=== PATIENT | female | born 1950 | race American Indian/Alaskan Native ===

== ENCOUNTER 2021-04-29 17:28 | Observation (INO) | payer MEDICARE ==
--- NOTE | 2021-04-29 18:31 | Emergency Department Report ---
ED Dizziness HPI - General Chief Complaint: Abdominal Pain Stated Complaint: WEAKNESS Time Seen by Provider: 04/29/21 18:04 Source: EMS Mode of arrival: Stretcher Limitations: No Limitations - History of Present Illness Initial Comments: 71-year-old female past medical history of hypertension, interstitial lung disease, and peptic ulcer disease presents to the hospital with episode of nausea, vomiting, and near syncope. Patient states she felt fine all day. Prior to arrival patient felt lightheaded, almost passed out, and had 2 episodes of vomiting. Her granddaughter broke her fall and she denies head injury. Patient complains of mild shortness of breath during episode. She received Zofran 4 mg in 350 mL normal saline provided by EMS with improvement in symptoms. Patient denies headache, chest pain, abdominal pain, calf pain, leg swelling, history of PE/DVT, history of CAD or home oxygen dependence. Patient does report that she does have a history of intermittent vertigo that is typically worse with turning her head. She reports this episode felt a little different. She was seen by her [place] doctors 2 to 3 days ago due to complaints of feeling off balance. She is vaccinated for Covid. She endorses a chronic cough secondary to pulmonary fibrosis that is unchanged. Her PMD is affiliated with [place] - Related Data Allergies Allergy/AdvReac Type Severity Reaction Status Date / Time No Known Allergies Allergy Unverified 08/26/13 11:41 ED Review of Systems ROS: Stated complaint: WEAKNESS Other details as noted in HPI Comment: All other systems reviewed and negative ED Past Medical Hx - Past Medical History Previous Medical History?: Yes Hx Hypertension: Yes Hx COPD: Yes - Surgical History Past Surgical History?: No ED Physical Exam - General Limitations: No Limitations - Other Other exam information: General: No acute distress Head: Atraumatic Eyes: normal appearance, no nystagmus, extraocular was intact ENT: Moist mucous membranes Neck: Normal appearance, no midline tenderness Chest: Clear to auscultation bilaterally CV: Regular rate and rhythm Abdomen: Soft, normal bowel sounds, nontender, nondistended, no rebound or guarding Back: Normal inspection Extremity: Normal inspection, full range of motion Neuro: Alert O x 3, no facial asymmetry, speech clear, no gross motor sensory deficit, cuzoff-rsin-pemkkh function intact, mild tremor noted on right hand Psych: Appropriate behavior Skin: No rash ED Course Vital Signs 04/29/21 04/29/21 17:34 20:22 Temperature 97.8 F Pulse Rate 76 Respiratory 17 18 Rate Blood Pressure 134/85 [Left] O2 Sat by Pulse 98 99 Oximetry - Reevaluation(s) Reevaluation #1: 04/29/21 20:55 Patient's blood pressure is now elevated. Labetolol 100mg po ordered - Consultations Consultation #1: 04/29/21 20:52 Case discussed with [place] physician Dr Strong. Since patient has Medicare patient was given the option of attempted transfer to [facility] versus admission here. Patient is elected to stay here given that is close to the home. Patient states she resides with her granddaughter Bella Poe and does not recall her contact information. [place] had a home phone number of [phone] and did not have any contact information for the granddaughter. ED Medical Decision Making - Lab Data Result diagrams: 04/29/21 18:57 04/29/21 18:57 Lab Results 04/29/21 04/29/21 04/29/21 Range/Units 18:57 18:57 18:57 WBC 3.3 L (4.5-11.0) K/mm3 RBC 5.06 H (3.65-5.03) M/mm3 Hgb 14.0 (10.1-14.3) gm/dl Hct 43.0 H (30.3-42.9) % MCV 85 (79-97) fl MCH 28 (28-32) pg MCHC 32 (30-34) % RDW 14.9 (13.2-15.2) % Plt Count 123 L (140-440) K/mm3 Lymph % (Auto) 21.7 (13.4-35.0) % [place] % (Auto) 13.2 H (0.0-7.3) % Eos % (Auto) 0.1 (0.0-4.3) % Baso % (Auto) 0.4 (0.0-1.8) % Lymph # (Auto) 0.7 L (1.2-5.4) K/mm3 [place] # (Auto) 0.4 (0.0-0.8) K/mm3 Eos # (Auto) 0.0 (0.0-0.4) K/mm3 Baso # (Auto) 0.0 (0.0-0.1) K/mm3 Seg Neutrophils % 64.6 (40.0-70.0) % Seg Neutrophils # 2.1 (1.8-7.7) K/mm3 PT 13.2 (12.2-14.9) Sec. INR 0.90 (0.87-1.13) APTT 24.1 L (24.2-36.6) Sec. Sodium 141 (137-145) mmol/L Potassium 3.6 (3.6-5.0) mmol/L Chloride 101.5 (98-107) mmol/L Carbon Dioxide 23 (22-30) mmol/L Anion Gap 20 mmol/L BUN 7 (7-17) mg/dL Creatinine 0.6 (0.6-1.2) mg/dL Estimated GFR > 60 ml/min BUN/Creatinine Ratio 12 % Glucose 118 H (65-100) mg/dL Calcium 9.5 (8.4-10.2) mg/dL Magnesium (1.7-2.3) mg/dL Total Bilirubin 0.40 (0.1-1.2) mg/dL AST 31 (5-40) units/L ALT 23 (7-56) units/L Alkaline Phosphatase 95 (35-129) units/L Troponin T < 0.010 (0.00-0.029) ng/mL Total Protein 7.6 (6.3-8.2) g/dL Albumin 4.2 (3.9-5) g/dL Albumin/Globulin Ratio 1.2 % Lipase (13-60) units/L 04/29/21 04/29/21 Range/Units 18:57 18:57 WBC (4.5-11.0) K/mm3 RBC (3.65-5.03) M/mm3 Hgb (10.1-14.3) gm/dl Hct (30.3-42.9) % MCV (79-97) fl MCH (28-32) pg MCHC (30-34) % RDW (13.2-15.2) % Plt Count (140-440) K/mm3 Lymph % (Auto) (13.4-35.0) % [place] % (Auto) (0.0-7.3) % Eos % (Auto) (0.0-4.3) % Baso % (Auto) (0.0-1.8) % Lymph # (Auto) (1.2-5.4) K/mm3 [place] # (Auto) (0.0-0.8) K/mm3 Eos # (Auto) (0.0-0.4) K/mm3 Baso # (Auto) (0.0-0.1) K/mm3 Seg Neutrophils % (40.0-70.0) % Seg Neutrophils # (1.8-7.7) K/mm3 PT (12.2-14.9) Sec. INR (0.87-1.13) APTT (24.2-36.6) Sec. Sodium (137-145) mmol/L Potassium (3.6-5.0) mmol/L Chloride (98-107) mmol/L Carbon Dioxide (22-30) mmol/L Anion Gap mmol/L BUN (7-17) mg/dL Creatinine (0.6-1.2) mg/dL Estimated GFR ml/min BUN/Creatinine Ratio % Glucose (65-100) mg/dL Calcium (8.4-10.2) mg/dL Magnesium 2.20 (1.7-2.3) mg/dL Total Bilirubin (0.1-1.2) mg/dL AST (5-40) units/L ALT (7-56) units/L Alkaline Phosphatase (35-129) units/L Troponin T (0.00-0.029) ng/mL Total Protein (6.3-8.2) g/dL Albumin (3.9-5) g/dL Albumin/Globulin Ratio % Lipase 30 (13-60) units/L - EKG Data -: EKG Interpreted by Hi EKG shows normal: sinus rhythm, ST-T waves (no stemi/t inv) Rate: normal (72) - EKG Data When compared to previous EKG there are: previous EKG unavailable - Radiology Data Radiology results: report reviewed NONENHANCED CT SCAN OF THE HEAD: INDICATION / CLINICAL INFORMATION: 71 years Female; lightheaded, off balance. TECHNIQUE: Routine CT head without contrast. All CT scans at this location are performed using CT dose reduction for ALARA by means of automated exposure control. COMPARISON: None. FINDINGS: BRAIN / INTRACRANIAL CONTENTS: No acute hemorrhage, mass effect, midline shift, hydrocephalus, or acute, large territorial infarct. No chronic infarct or focal atrophy. Normal brain volume and ventricular/sulcal size for age. Periventricular low-attenuation areas in both cerebral hemispheres due to chronic small vessel disease CRANIOCERVICAL JUNCTION: No significant abnormality. ORBITS: No significant abnormality CHEST 1 VIEW 04/29/2021 5:42 PM INDICATION / CLINICAL INFORMATION: weakness, near syncope. COMPARISON: None available. FINDINGS: SUPPORT DEVICES: None. HEART / MEDIASTINUM: No significant abnormality. LUNGS / PLEURA: No significant pulmonary or pleural abnormality. No pneumothorax. ADDITIONAL FINDINGS: No significant additional findings. IMPRESSION: 1. No acute findings. - Medical Decision Making 71-year-old female presents to the hospital with near syncopal episode. ED work-up unremarkable however given age and risk factors patient will be entered for observation and cardiac monitoring. At time the ED evaluation is unclear if symptoms are due to cardiac pathology, neurology pathology, or vasovagal. Urine collection pending at time of disposition. Patient is a [place] patient and [place] was contacted prior to admission here Critical Care Time: No Critical care attestation.: If time is entered above; I have spent that time in minutes in the direct care of this critically ill patient, excluding procedure time. ED Disposition Clinical Impression: Near syncope Disposition: ADMITTED INPATIENT Is pt being admited?: Yes Condition: Stable Instructions: Abdominal Pain (ED) Time of Disposition: 20:56 (DR Rios/[facility])
--- NOTE | 2021-04-29 18:49 | XRay Report ---
CHEST 1 VIEW 04/29/2021 5:42 PM INDICATION / CLINICAL INFORMATION: weakness, near syncope. COMPARISON: None available. FINDINGS: SUPPORT DEVICES: None. HEART / MEDIASTINUM: No significant abnormality. LUNGS / PLEURA: No significant pulmonary or pleural abnormality. No pneumothorax. ADDITIONAL FINDINGS: No significant additional findings. IMPRESSION: 1. No acute findings. Signer Name: Walker Rivera MD Signed: 04/29/2021 6:45 PM Workstation Name: [id number]
--- NOTE | 2021-04-29 19:09 | Cat Scan Report ---
NONENHANCED CT SCAN OF THE HEAD: INDICATION / CLINICAL INFORMATION: 71 years Female; lightheaded, off balance. TECHNIQUE: Routine CT head without contrast. All CT scans at this location are performed using CT dos e reduction for ALARA by means of automated exposure control. COMPARISON: None. FINDINGS: BRAIN / INTRACRANIAL CONTENTS: No acute hemorrhage, mass effect, midline shift, hydrocephalus, or acu te, large territorial infarct. No chronic infarct or focal atrophy. Normal brain volume and ventricul ar/sulcal size for age. Periventricular low-attenuation areas in both cerebral hemispheres due to chr onic small vessel disease CRANIOCERVICAL JUNCTION: No significant abnormality. ORBITS: No significant abnormality SINUSES / MASTOIDS: No significant abnormality of the visualized paranasal sinuses or mastoid air nya ls. ADDITIONAL FINDINGS: None. IMPRESSION: No focal mass, hemorrhage, hydrocephalus, or acute, large territorial infarct. Signer Name: Steven Durán MD Signed: 04/29/2021 7:05 PM Workstation Name: [id number]
[2021-04-29 19:21] LABS: Basophils % (Auto) 0.4 % (0.0-1.8); Eosinophils % (Auto) 0.1 % (0.0-4.3); Lymphocytes # (Auto) 0.7 K/mm3 (1.2-5.4); Lymphocytes % (Auto) 21.7 % (13.4-35.0); Mean Corpuscular HGB Conc 32 % (30-34); Mean Corpuscular Volume 85 fl (79-97); Monocytes # (Auto) 0.4 K/mm3 (0.0-0.8); Monocytes % (Auto) 13.2 % (0.0-7.3); Platelet Count 123 K/mm3 (140-440); Red Blood Count 5.06 M/mm3 (3.65-5.03); Red Cell Distribution Width 14.9 % (13.2-15.2)
[2021-04-29 19:30] LABS: INR 0.9 (0.87-1.13)
[2021-04-29 19:31] LABS: Partial Thromboplastin Time 24.1 Sec. (24.2-36.6)
[2021-04-29 19:43] LABS: Alanine Aminotransferase 23 units/L (7-56); Albumin 4.2 g/dL (3.9-5); Blood Urea Nitrogen 7 mg/dL (7-17); Calcium 9.5 mg/dL (8.4-10.2); Hemolysis Index 31
[2021-04-29 20:01] LABS: BUN/Creatinine Ratio 12
[2021-04-29 22:00] LABS: Bacteria,Urine 1+ /HPF (Negative); Bilirubin,Urine NEG (Negative); Blood,Urine NEG (Negative); Color,Urine Yellow (Yellow); Mucus,Urine FEW /HPF; Protein,Urine <15 mg/dL mg/dL (Negative); Urobilinogen,Urine < 2.0 mg/dL (<2.0)
[2021-04-29 22:05] LABS: Amphetamine Screen,Urine Negative; Benzodiazepines Screen,Urine Negative; Cannabinoid Screen,Urine Negative; Cocaine Screen,Urine Negative; Methadone Screen,Urine Negative; Opiate Screen,Urine Negative
[2021-04-29] MEDS ORDERED: MORPHINE 4 MG/1 ML INJ IV PRN (22:19)
[2021-04-29] MEDS ORDERED: MORPHINE 2 MG/1 ML INJ IV PRN (22:19)
[2021-04-29] MEDS ORDERED: ONDANSETRON 4 MG/2 ML INJ IV PRN (22:19)
[2021-04-29] MEDS ORDERED: ACETAMINOPHEN 325 MG TAB PO PRN (22:19)
[2021-04-29] MEDS ORDERED: MAGNESIUM HYDROXIDE (MOM) ORAL LIQD UDC PO PRN (22:19)
--- NOTE | 2021-04-29 22:43 | History and Physical Report ---
History of Present Illness Date of examination: 04/29/21 Date of admission: 04/29/2021 Chief complaint: Nausea and Vomiting Syncope History of present illness: 71-year-old female with known history of hypertension, interstitial lung disease, peptic ulcer disease presenting today emergency room today complaining of nausea and vomiting and near syncope. Patient indicates that prior to reporting to the emergency room she felt lightheaded and almost passed out. She has had multiple episodes of nausea and vomiting today. Patient denies any headache, no chest pain, no fever or chills, no abdominal pain, no hematuria or dysuria. She however had some mild shortness of breath 39 a near syncopal episode. She was seen by [place] physician about 3 days ago after feeling off balance. Patient however feels denies syncopal episode today felt different from usual positional vertigo. Patient denies any sick contacts and no recent travel. Denies any contact with anyone with COVID-19. She states she is not vaccinated against COVID-19. Work-up in the emergency room today, chest x-ray, head CT and labs were unremarkable. Patient being admitted for evaluation of a near syncopal episode. Past History Past Medical History: COPD, hypertension, other (Interstitial lung disease,PUD) Past Surgical History: No surgical history Social history: no significant social history Family history: no significant family history Medications and Allergies Allergies Allergy/AdvReac Type Severity Reaction Status Date / Time No Known Allergies Allergy Verified 04/29/21 22:35 Active Meds: Active Medications Acetaminophen (Acetaminophen 325 Mg Tab) 650 mg PO Q4H PRN PRN Reason: Pain MILD(1-3)/Fever >100.5/JUAREZ Heparin Sodium (Porcine) (Heparin 5,000 Unit/1 Ml Vial) 5,000 unit SUB-Q Q8HR KINGS Magnesium Hydroxide (Magnesium Hydroxide (Mom) Oral Liqd Udc) 30 ml PO Q4H PRN PRN Reason: Constipation Morphine Sulfate (Morphine 2 Mg/1 Ml Inj) 2 mg IV Q4H PRN PRN Reason: Pain, Moderate (4-6) Morphine Sulfate (Morphine 4 Mg/1 Ml Inj) 4 mg IV Q4H PRN PRN Reason: Pain , Severe (7-10) Ondansetron HCl (Ondansetron 4 Mg/2 Ml Inj) 4 mg IV Q8H PRN PRN Reason: Nausea And Vomiting Sodium Chloride (Sodium Chloride 0.9% 10 Ml Flush Syringe) 10 ml IV BID KINGS Sodium Chloride (Sodium Chloride 0.9% 10 Ml Flush Syringe) 10 ml IV PRN PRN PRN Reason: LINE FLUSH Review of Systems Constitutional: no fever, no chills Ears, nose, mouth and throat: no nasal congestion, no sore throat Cardiovascular: syncope (Near Syncope), no chest pain, no palpitations Respiratory: no cough, no shortness of breath Gastrointestinal: nausea, vomiting, no abdominal pain, no diarrhea Genitourinary Female: no flank pain, no dysuria, no hematuria Musculoskeletal: no neck pain, no low back pain Integumentary: no rash, no pruritis Neurological: no headaches, no confusion Psychiatric: no anxiety, no depression Endocrine: no polydipsia, no polyuria, no nocturia Exam - Constitutional Vitals: Temp Pulse Resp BP Pulse Ox 97.8 F 76 18 134/85 99 04/29/21 17:34 04/29/21 17:34 04/29/21 20:22 04/29/21 17:34 04/29/21 20:22 General appearance: Present: no acute distress, well-nourished - EENT Eyes: Present: PERRL, EOM intact. Absent: scleral icterus ENT: hearing intact, clear oral mucosa, dentition normal - Neck Neck: Present: supple, normal ROM - Respiratory Respiratory effort: normal Respiratory: bilateral: CTA - Cardiovascular Rhythm: regular Heart Sounds: Present: S1 & S2. Absent: gallop, systolic murmur, rub - Extremities Extremities: no ischemia, pulses intact, pulses symmetrical, No edema, normal temperature, normal color, Full ROM Peripheral Pulses: within normal limits - Abdominal General gastrointestinal: Present: soft, non-tender, non-distended, normal bowel sounds. Absent: mass - Integumentary Integumentary: Present: clear, warm, dry, normal turgor. Absent: rash - Musculoskeletal Musculoskeletal: strength equal bilaterally - Psychiatric Psychiatric: appropriate mood/affect, intact judgment & insight, memory intact, cooperative - Neurologic Neurologic: CNII-XII intact, no focal deficits, moves all extremities HEART Score - HEART Score Troponin: Troponin T < 0.010 ng/mL (0.00-0.029) 04/29/21 21:48 Results - Labs CBC & Chem 7: 04/29/21 18:57 04/30/21 05:01 Labs: Abnormal lab results 04/29/21 04/29/21 04/29/21 Range/Units 18:57 18:57 18:57 WBC 3.3 L (4.5-11.0) K/mm3 RBC 5.06 H (3.65-5.03) M/mm3 Hct 43.0 H (30.3-42.9) % Plt Count 123 L (140-440) K/mm3 [place] % (Auto) 13.2 H (0.0-7.3) % Lymph # (Auto) 0.7 L (1.2-5.4) K/mm3 APTT 24.1 L (24.2-36.6) Sec. Glucose 118 H (65-100) mg/dL Assessment and Plan - Patient Problems (1) Near syncope Current Visit: No Status: Inactive Plan to address problem: Etiology unclear. Possibly related to patient's history of vertigo. We will however schedule patient for carotid Doppler and echocardiogram. (2) Hypertension Current Visit: No Status: Acute Plan to address problem: We will resume routine home medications and monitor vital signs closely. (3) Peptic ulcer disease Current Visit: No Status: Acute Plan to address problem: Continue home medications. (4) Interstitial lung disease Current Visit: No Status: Acute Plan to address problem: Appears stable. (5) DVT prophylaxis Current Visit: No Status: Acute Plan to address problem: Patient placed on subcutaneous heparin. (6) Full code status Current Visit: No Status: Acute Plan to address problem: Patient is full code.
[2021-04-30 05:56] LABS: INR 0.91 (0.87-1.13)
[2021-04-30 06:05] LABS: Blood Urea Nitrogen 8 mg/dL (7-17); Calcium 8.6 mg/dL (8.4-10.2); Hemolysis Index 2
[2021-04-30 06:08] LABS: BUN/Creatinine Ratio 13
[2021-04-30] MEDS ORDERED: hydrALAZINE 20 MG/1 ML INJ IV PRN (06:17)
[2021-04-30] MEDS: HEPARIN 5,000 UNIT/1 ML VIAL SUB-Q SCH ×2 (07:11→15:19)
[2021-04-30] MEDS ORDERED: POTASSIUM CHLORIDE ER 20 MEQ TAB PO SCH (08:00)
--- NOTE | 2021-04-30 11:48 | Vascular Lab Report ---
DUPLEX DOPPLER ULTRASOUND CAROTID, BILATERAL INDICATION / CLINICAL INFORMATION: Syncope. COMPARISON: None available. FINDINGS: RIGHT CAROTID: Tortuous with scattered plaque. - PLAQUE ESTIMATE (%): < 50% - CCA (distal) velocity: 116 cm/sec. - ICA peak systolic velocity: 71 cm/sec. - ICA/CCA PSV Ratio: 0.6 Right Vertebral Artery: Antegrade flow. LEFT CAROTID: Tortuous with scattered plaque. - PLAQUE ESTIMATE (%): < 50% - CCA (distal) velocity: 85 cm/sec. - ICA peak systolic velocity: 72 cm/sec. - ICA/CCA PSV Ratio: 0.8 Left Vertebral Artery: Antegrade flow. IMPRESSION: 1. Right Internal Carotid Artery: Less than 50% diameter stenosis. 2. Left Internal Carotid Artery: Less than 50% diameter stenosis. Velocity criteria are extrapolated from diameter data as defined by the Society of Radiologists in [facility] Consensus Conference, Radiology 2003; 229;340-346. NO STENOSIS (NORMAL) - Plaque = none; ICA PSV < 125 cm/sec; ICA/CCA PSV Ratio < 2.0 <50% STENOSIS - Plaque < 50%; ICA PSV < 125 cm/sec; ICA/CCA PSV Ratio < 2.0 50-69% STENOSIS - Plaque > 50%; ICA PSV = 125-230 cm/sec; ICA/CCA PSV Ratio = 2.0-4.0 >70% BUT <100% STENOSIS - Plaque > 50%; ICA PSV > 230 cm/sec; ICA/CCA PSV Ratio > 4.0 NEAR OCCLUSION - Plaque = visible lumen; ICA PSV = high/low/none; ICA/CCA PSV Ratio = variable TOTAL OCCLUSION - Plaque = no lumen; ICA PSV = none; ICA/CCA PSV Ratio = N/A Signer Name: Michele Walsh MD Signed: 04/30/2021 11:43 AM Workstation Name: [email or web address]
--- NOTE | 2021-04-30 12:08 | Discharge Summary ---
Providers - Providers Date of Admission: 04/29/21 22:21 Attending physician: TONIE MORAN MD Primary care physician: SINAN CALDWELL MD Hospitalization Condition: Stable Exam - Constitutional Vitals: Temp Pulse Resp BP Pulse Ox 97.8 F 92 H 17 118/51 98 04/29/21 17:34 04/30/21 05:24 04/30/21 05:24 04/30/21 08:45 04/30/21 08:45 Plan Care Plan Goals: These follow-up with your primary care doctor as soon as possible. Your echocardiogram showed normal heart function. The ultrasound of your neck arteries showed less than 50% stenosis. CT head was also negative. If your symptoms return, please report to the emergency department ANALIA. Follow up with: SINAN CALDWELL MD [Primary Care Provider] - 7 Days
--- NOTE | 2021-04-30 12:16 | Electrocardiograph Report ---
[facility] Test Date: 2021-04-29 Test Time: 19:54:57 Pat Name: ROB WEEMS Department: Room: [place] [address] Gender: F [employer]visor [employer]: RADHA : 1950 Requested By: RUBINA CARNES Order Number: [id number] Reading MD: Allison Rey Measurements Intervals [place] Rate: 72 P: 69 RI: 193 QRS: 21 QRSD: 87 T: 32 QT: 405 QTc: 443 Interpretive Statements Sinus rhythm No previous ECG available for comparison Electronically Signed On 04-30-2021 12:16:13 EST by Allison Rey
[2021-04-30 15:21] VITALS: BP 138/73
== END 2021-04-30 16:12 | disposition home or self-care (01) ==
LOC: ED 17:28 → 4A 22:21
PROVIDERS: ADMIT Internal Medicine Geriatric Medicine; ATTEND Student in an Organized Health Care Education/Training Program
DX: U07.1 COVID-19 (principal); R55 Syncope and collapse; I10 Essential (primary) hypertension; K27.9 Peptic ulcer, site unspecified, unspecified as acute or chronic, without hemorrhage or perforation; J84.9 Interstitial pulmonary disease, unspecified; J44.9 Chronic obstructive pulmonary disease, unspecified; R11.2 Nausea with vomiting, unspecified; R53.1 Weakness; Z79.899 Other long term (current) drug therapy
CPT/HCPCS: 36415; 70450; 71045; 80048; 80053; 80307; 81001; 83690; 83735; 84484; 85025; 85610; 85730; 93005; 93306; 93880; 96372; 99285; G0378; J1644; U0003